=== PATIENT | female | born 1945 | race Caucasian/White ===

== ENCOUNTER 2017-01-27 22:17 | Inpatient (IN) | payer MEDICARE, OTHER ==
--- NOTE | ~2017-01-27 | CR72 ---
[facility] A Service of [facility] & [facility] RADIOLOGY TEXT RESULTS PATIENT: PEDRO LERMA LOCATION: A : 45 UNIT #: [id number] AGE: [address]: Benny Ibrahim MD SEX: F ORDER DR: [id number] [facility] [address] [place], [place] [address] [id number] I MR#: [id number] Acc #: [id number] NAME: PEDRO LERMA. : 1945 SEX: F STUDY DATE/TIME: 01/27/2017 22:19 UNIT: [facility] ROOM: [facility] STUDY DESCRIPTION: CR Chest Single View Portable Attending Physician: Benny Ibrahim M.D. Ordering Physician: Enrique Caraballo M.D. Primary Care Physician: Benny Ibrahim M.D. MEDICAL IMAGING REPORT This report is preliminary unless electronic signature is present EXAM AP portable chest 01/27/2017 22:19 HISTORY Chest pain and cough. Symptoms began 01/26/2017. Patient fell. Breast cancer. COMPARISON PA and lateral chest 11/21/2016. FINDINGS No acute airspace disease. Heart size is within normal limits. Upper lumbar curvature toward the left. Marginal osteophyte formation in the thoracic spine. No displaced rib fracture seen. Degenerative changes of both shoulders. No pleural effusion or pneumothorax. IMPRESSION No acute cardiopulmonary findings. Dictated by... Landy Rich M.D. THIS IS AN ELECTRONICALLY VERIFIED REPORT Landy Rich M.D. at 01/28/2017 10:03 PM LL/yahir TD: 01/28/2017 06:11 JOB #: [id number] MEDICAL IMAGING REPORT COPY
--- NOTE | ~2017-01-27 | CR63 ---
[facility] A Service of [facility] & [facility] RADIOLOGY TEXT RESULTS PATIENT: PEDRO LERMA LOCATION: A [address] : 45 UNIT #: [id number] AGE: [address]: Benny Ibrahim MD SEX: F ORDER DR: [id number] [facility] [address]. [place], [place] [address] [id number] I MR#: [id number] Acc #: [id number] NAME: PEDRO LERMA : 1945 SEX: F STUDY DATE/TIME: 01/30/2017 UNIT: A ROOM: [facility] STUDY DESCRIPTION: CR Chest 2 View Attending Physician: Benny Ibrahim M.D. Ordering Physician: Benny Ibrahim M.D. Primary Care Physician: Benny Ibrahim M.D. MEDICAL IMAGING REPORT This report is preliminary unless electronic signature is present EXAM Chest, 2 views, 01/30/2017, 0935 hours. HISTORY 71-year-old woman with 2-day history of shortness of air, cough, and congestion. Flu-like symptoms. COMPARISON STUDIES 01/27/2017 FINDINGS Upright PA and 2 lateral views demonstrate normal cardiac, mediastinal, and hilar contours. The lungs are well-expanded and clear. There is no effusion or pneumothorax. IMPRESSION Normal 2-view chest exam. Dictated by... Adelina Rice M.D. THIS IS AN ELECTRONICALLY VERIFIED REPORT Adelina Rice M.D. at 01/30/2017 6:58 PM Madi TD: 01/30/2017 15:26 JOB #: [id number] MEDICAL IMAGING REPORT COPY
--- NOTE | ~2017-01-27 | EKG ---
PATIENT: PEDRO LERMA UNIT #: [id number] Ventricular Rate: 52 BPM Atrial Rate: 52 BPM P-R Interval: 132 ms QRS Duration: 84 ms Q-T Interval: 496 ms QTC Calculation(Bezet): 461 ms P [place]: 69 degrees Calculated R [place]: -9 degrees Calculated T [place]: 33 degrees Diagnosis Line: Sinus bradycardia Diagnosis Line: Cannot rule out Inferior infarct , age Diagnosis Line: undetermined Diagnosis Line: ST and T wave abnormality, consider anterior Diagnosis Line: ischemia Diagnosis Line: Abnormal ECG Diagnosis Line: When compared with ECG of 15-AUG-2016 16:48, Diagnosis Line: No significant change was found Diagnosis Line: Confirmed by MARLI PATTERSON MD ([id number]) on Diagnosis Line: 01/30/2017 11:28:37 AM INTERPRETING MD: LEONARDO HOLDER
--- NOTE | ~2017-01-27 | US84 ---
[id number] [facility] [address] [place], [place] [address] [id number] I MR#: [id number] Acc #: [id number] NAME: PEDRO LERMA : 1945 SEX: F STUDY DATE/TIME: 01/30/2017 9:59 UNIT: C2A ROOM: 217 STUDY DESCRIPTION: US LE Veins Complete Herman Stdy Attending Physician: Benny Ibrahim M.D. Ordering Physician: Benny Ibrahim M.D. Primary Care Physician: Benny Ibrahim M.D. MEDICAL IMAGING REPORT This report is preliminary unless electronic signature is present EXAM Bilateral lower extremity venous duplex, 01/30/2017 HISTORY Bilateral lower extremity edema for 2 weeks and bilateral lower extremity pain for 1 year, thrombocytopenia. Evaluate for deep vein thrombosis. TECHNIQUE Venous ultrasound examination of both lower extremities was performed using grayscale, spectral Doppler and color flow Doppler imaging. FINDINGS The examination is negative. There is no evidence of deep venous thrombus from the groin to the lower calf bilaterally. Visualized greater saphenous veins are also patent. IMPRESSION Negative examination. No evidence of bilateral lower extremity deep venous thrombosis. Dictated by... Silvestre Alanis M.D. THIS IS AN ELECTRONICALLY VERIFIED REPORT Silvestre Alanis M.D. at 01/30/2017 5:03 PM Oni TD: 01/30/2017 14:44 JOB #: [id number] MEDICAL IMAGING REPORT COPY
--- NOTE | ~2017-01-27 | CT71 ---
[facility] A Service [facility] RADIOLOGY TEXT RESULTS PATIENT: PEDRO LERMA LOCATION: [facility] : 45 UNIT #: [id number] AGE: [address]: Benny Ibrahim MD SEX: F ORDER DR: [id number] [id number] [place], [place] [address] [id number] I MR#: [id number] Acc #: [id number] NAME: PEDRO LERMA : 1945 SEX: F STUDY DATE/TIME: 01/28/2017 16:27 UNIT: [facility] ROOM: [facility] STUDY DESCRIPTION: CT Head Wo Contrast Attending Physician: Benny Ibrahim M.D. Ordering Physician: Benny Ibrahim M.D. Primary Care Physician: Benny Ibrahim M.D. MEDICAL IMAGING REPORT This report is preliminary unless electronic signature is present EXAM Head CT no contrast, 01/28/[address] dated 07/12/2015 PROCEDURE Axial unenhanced head CT. This CT exam was performed with one or more of the following radiation dose reduction techniques: automatic exposure control, adjustment of mA and/or kV according to patient size, and iterative reconstruction. COMPARISON None. CLINICAL HISTORY New onset confusion, fell and struck head yesterday. FINDINGS There is no intracranial hemorrhage. There is no mass, hydrocephalus or extraaxial fluid collection. Brain parenchymal density is normal. There is some slight bilateral maxillary mucosal thickening as well as some sphenoid mucosal thickening. There is an old healed left ethmoid/lamina papyracea fracture but there is no acute bony abnormality. IMPRESSION Negative unenhanced head CT. No acute intracranial abnormality. The brain appears normal. Dictated by... [facility] A Service of [facility] RADIOLOGY TEXT RESULTS PATIENT: PEDRO LERMA LOCATION: [facility] : 45 UNIT #: [id number] AGE: [address]: Benny Ibrahim MD SEX: F ORDER DR: Zeke Talley M.D. THIS IS AN ELECTRONICALLY VERIFIED REPORT Zeke Talley M.D. at 01/31/2017 3:49 PM TEV/ljd TD: 01/29/2017 03:24 JOB #: [id number] MEDICAL IMAGING REPORT COPY
--- NOTE | ~2017-01-27 | NM69 ---
[facility] A Service of [facility] RADIOLOGY TEXT RESULTS PATIENT: PEDRO LERMA LOCATION: [facility] : 45 UNIT #: [id number] AGE: [address]: Benny Ibrahim MD SEX: F ORDER DR: [id number] [facility] [address]. [place], [place] [address] [id number] I MR#: [id number] Acc #: [id number] NAME: PEDRO LERMA : 1945 SEX: F STUDY DATE/TIME: 01/30/2017 11:06 UNIT: [facility] ROOM: [facility] STUDY DESCRIPTION: NM Pulm Vent and Perf Attending Physician: Benny Ibrahim M.D. Ordering Physician: Benny Ibrahim M.D. Primary Care Physician: Benny Ibrahim M.D. MEDICAL IMAGING REPORT This report is preliminary unless electronic signature is present EXAM Ventilation/perfusion study of the lungs. HISTORY Shortness of air, fatigue, tightness in chest and swelling in legs of recent onset. TECHNIQUE The patient was given 30.5 mCi of technetium 99m MDP in aerosol form for the ventilation study and 5.56 mCi of technetium-99m MAA for the perfusion study. FINDINGS There are areas of slightly decreased perfusion and ventilation in each lung but they are matched and they likely represent vascular structures. Chest x-ray today was clear. IMPRESSION Study indicates a low probably for pulmonary embolus. Dictated by... Zachary Banegas M.D. THIS IS AN ELECTRONICALLY VERIFIED REPORT Zachary Banegas M.D. at 01/30/2017 4:39 PM PIETRO/craig TD: 01/30/2017 16:24 JOB #: [id number] [facility] A Service [facility] RADIOLOGY TEXT RESULTS PATIENT: PEDRO LERMA LOCATION: [facility] : 45 UNIT #: [id number] AGE: [address]: Benny Ibrahim MD SEX: F ORDER DR: MEDICAL IMAGING REPORT COPY
--- NOTE | ~2017-01-27 | CR126 ---
[facility] A Service of [facility] & [facility] RADIOLOGY TEXT RESULTS PATIENT: PEDRO LERMA LOCATION: C2A : 45 UNIT #: [id number] AGE: [address]: Benny Ibrahim MD SEX: F ORDER DR: [id number] [facility] [address] [place], [place] [address] [id number] I MR#: [id number] Acc #: [id number] NAME: PEDRO LERMA. : 1945 SEX: F STUDY DATE/TIME: 01/27/2017 22:23 UNIT: [facility] ROOM: [facility] STUDY DESCRIPTION: CR Foot Complete Min 3 View Lt Attending Physician: Benny Ibrahim M.D. Ordering Physician: Ed Doctor [id number] [facility] Primary Care Physician: Benny Ibrahim M.D. MEDICAL IMAGING REPORT This report is preliminary unless electronic signature is present EXAM Left foot 3 views 01/27/2017 HISTORY Left foot pain after falling on 01/26/2017. COMPARISON Left foot radiographs 02/17/2015. FINDINGS Limited evaluation of the toes due to second through fourth digit extension at the MCP joints and flexion of the PIP and DIP joints. Allowing for this, no acute fracture or dislocation is seen. There is marginal erosive change at the medial margin of the distal first metatarsal, similar to the prior exam, nonspecific but can be seen in gout. No suspicious osteolytic or osteoblastic abnormalities are identified. No unexpected retained radiopaque foreign body is appreciated within the soft tissues. Tiny posterior calcaneal spurs. IMPRESSION 1. Limited evaluation of the digits due to extension at the metatarsal phalangeal joints and flexion at the interphalangeal joints. No acute fracture or dislocation is seen. 2. Marginal erosion at the distal first metatarsal near the MTP joint, unchanged from prior exam, can be seen in cases of gout. Dictated by... Landy Rich M.D. THIS IS AN ELECTRONICALLY VERIFIED REPORT Landy Rich M.D. at 01/28/2017 10:03 PM [facility]/yahir [facility] A Service of [facility] & [facility] RADIOLOGY TEXT RESULTS PATIENT: PEDRO LERMA LOCATION: [facility] 217-01 : 45 UNIT #: [id number] AGE: [address]: Benny Ibrahim MD SEX: F ORDER DR: TD: 01/28/2017 06:21 JOB #: [id number] MEDICAL IMAGING REPORT COPY
--- NOTE | ~2017-01-27 | CR150 ---
[facility] A Service of [facility] & [facility] RADIOLOGY TEXT RESULTS PATIENT: PEDRO LERMA LOCATION: C2A : 45 UNIT #: [id number] AGE: [address]: Benny Ibrahim MD SEX: F ORDER DR: [id number] [facility] [address]. [place], [place] [address] [id number] I MR#: [id number] Acc #: [id number] NAME: PEDRO LERMA. : 1945 SEX: F STUDY DATE/TIME: 01/27/2017 22:31 UNIT: [facility] ROOM: [facility] STUDY DESCRIPTION: CR Hip Min 2 Views Lt Attending Physician: Benny Ibrahim M.D. Ordering Physician: Enrique Caarballo M.D. Primary Care Physician: Benny Ibrahim M.D. MEDICAL IMAGING REPORT This report is preliminary unless electronic signature is present EXAM AP pelvis with frog view left hip 01/27/2017 HISTORY 71-year-old female with left hip pain after falling on 01/26/2017. COMPARISON None. FINDINGS Patient is slightly rotated toward the right. No acute pelvic or hip fracture or hip dislocation is seen. No significant left hip osteoarthritic type changes are identified. Facet arthropathy is thought to be present on the left in the lower lumbar spine. IMPRESSION 1. No acute abnormality of the pelvis or left hip. 2. Lower lumbar facet arthropathy on the left. Dictated by... Landy Rich M.D. THIS IS AN ELECTRONICALLY VERIFIED REPORT Landy Rich M.D. at 01/28/2017 10:03 PM ANGELES/yahir TD: 01/28/2017 06:13 JOB #: [id number] MEDICAL IMAGING REPORT COPY
--- NOTE | ~2017-01-27 | CT4 ---
[facility] A Service of [facility] & [facility] RADIOLOGY TEXT RESULTS PATIENT: PEDRO LERMA LOCATION: C2A : 45 UNIT #: [id number] AGE: [address]: Benny Ibrahim MD SEX: F ORDER DR: [id number] [facility] [address] [place], [place] [address] [id number] I MR#: [id number] Acc #: [id number] NAME: PEDRO LERMA. : 1945 SEX: F STUDY DATE/TIME: 01/27/2017 22:45 UNIT: C2A ROOM: [facility] STUDY DESCRIPTION: CT Abd and Pelv Wo Cont Attending Physician: Benny Ibrahim M.D. Ordering Physician: Enrique Caraballo M.D. Primary Care Physician: Benny Ibrahim M.D. MEDICAL IMAGING REPORT This report is preliminary unless electronic signature is present EXAM CT abdomen and pelvis without contrast. Date 01/27/2017 22:45 HISTORY 71-year-old female who fell yesterday. Back pain. Abdominal pain. Diarrhea. History of breast cancer. COMPARISON CT abdomen and pelvis without contrast 12/25/2016. PROCEDURE 3 mm noncontrast axial images through the abdomen and pelvis. Sagittal and coronal reformatted images were obtained. Enteric contrast was not administered. This CT exam was performed with one or more of the following radiation dose reduction techniques: automatic exposure control, adjustment of mA and/or kV according to patient size, and iterative reconstruction. FINDINGS Abdomen: Lung bases are free of consolidation. Coronary artery calcifications are present. The noncontrast appearance of the liver, spleen, pancreas, right adrenal and bilateral kidneys is within normal limits. 2.8 x 1.4 cm left adrenal nodular thickening (Hounsfield units 8.0), unchanged, in keeping with a benign adenoma. Cholelithiasis without evidence of cholecystitis. Tiny umbilical hernia contains only fat. Small esophageal hiatal hernia. Appendix not visualized on today's examination, but no pericecal inflammation is seen. Limited evaluation of bowel due to lack of enteric contrast but no focal bowel inflammatory change is evident. Pelvis: Sigmoid diverticular changes are present without evidence of acute diverticulitis. Urinary bladder and rectum are normal. Presumed STS. [facility] A Service of [facility] RADIOLOGY TEXT RESULTS PATIENT: PEDRO LERMA LOCATION: A 217-01 : 45 UNIT #: [id number] AGE: [address]: Benny Ibrahim MD SEX: F ORDER DR: hysterectomy. Review of bone windows demonstrates no acute lumbar spine fracture, pelvic fracture, hip fracture or hip dislocation. Degenerative changes lumbar spine, most prominent with facet arthropathy bilaterally L4-5 and L5-S1. IMPRESSION 1. No acute findings in the abdomen and pelvis. 2. Bilateral L4-5, L5-S1 facet arthropathy. 3. Uncomplicated cholelithiasis. 4. Uncomplicated sigmoid diverticulosis. 5. Left adrenal adenoma. 6. Coronary calcifications. 7. Presumed hysterectomy. Dictated by... Landy Rich M.D. THIS IS AN ELECTRONICALLY VERIFIED REPORT Landy Rich M.D. at 01/28/2017 10:03 PM Alejandro TD: 01/28/2017 06:20 JOB #: [id number] MEDICAL IMAGING REPORT COPY
--- NOTE | ~2017-01-27 | HP ---
Unit #: [id number] #: [id number] Patient: PEDRO LERMA [id number] [address] [place], [place] [address] [id number] I MR#: [id number] NAME: PEDRO LERMA. ROOM: 217 Age: 71 Sex: F Admission Date: 01/28/2017 : 1945 Attending Physician: Benny Ibrahim M.D. Primary Care Physician: Benny Ibrahim M.D. HISTORY AND PHYSICAL HISTORY OF PRESENT ILLNESS 71-year-old white female, history of hypertension, hyperlipidemia, coronary artery disease, osteoporosis, chronic low back pain, breast cancer, status post bilateral mastectomies, chronic kidney disease stage 3, recent bout of diverticulitis, refused to take Flagyl for whatever reason. She then was in the shower on the and fell hurting her left hip. Was unable to ambulate, was brought to the emergency room, found to have normal hip x-rays. She had some arthritis in her spine which is obviously chronic. She was found to have acute influenzae A as well as a urinary tract infection and immobilization syndrome and was admitted for treatment for same. The patient has had recent upper respiratory symptoms but she has had no abdominal pain, nausea, vomiting or diarrhea. Was unaware that she was febrile. ALLERGIES She has stated allergies to penicillin, Talwin, hydrochlorothiazide and ibuprofen. MEDICATIONS Her medications prior to admission: 1. Lopressor 50 mg b.i.d. 2. Lipitor 10 mg daily. 3. Flexeril 5 mg b.i.d. 4. Isosorbide dinitrate 20 mg daily. 5. Plavix 75 mg daily. 6. Zoloft 100 daily. 7. Vitamin D2 50,000 units twice weekly. 8. Nitrostat sublingual p.r.n. 9. Lortab 5/325, one q.4 hours p.r.n. for pain. 10. Enteric coated aspirin 81 mg daily. 11. Prilosec 20 mg daily. 12. Colace 100 mg daily. 13. Iron 65 mg b.i.d. 14. Tamoxifen 20 mg daily. 15. Prolia 60 mg IM q.6 months. 16. Neurontin 300 mg p.o. daily. PAST MEDICAL HISTORY She has a history of: 1. Hypertension. 2. Hyperlipidemia. 3. Coronary artery disease. 4. Osteoporosis. 5. Chronic low back pain. Unit #: [id number] #: [id number] Patient: PEDRO LERMA 6. Breast cancer. 7. Chronic kidney disease stage 3. 8. Parkinson's dementia. 9. History of anemia. 10. Major depressive disorder. 11. GE reflux disease. PAST SURGICAL HISTORY 1. Bilateral mastectomies. 2. Status post hysterectomy. 3. Status post appendectomy. 4. Cardiac stents. 5. Angioplasty. 6. Right rotator cuff repair. 7. Rhinoplasty. 8. Septoplasty. SOCIAL HISTORY Nonsmoker, nondrinker. No street drugs. FAMILY HISTORY Noncontributory. PHYSICAL EXAMINATION GENERAL: She is awake, alert, oriented x3, in no acute distress. VITAL SIGNS: T-max overnight is 100.0, pulse 79, respirations 21, blood pressure 157/76. O2 sat 96% on room air. HEENT: Unremarkable. NECK: Supple without JVD, bruits, adenopathy or thyromegaly. CHEST: Clear to auscultation. HEART: Regular rate and rhythm without any murmurs, rubs or gallops. ABDOMEN: Soft, nondistended, nontender with positive bowel sounds and no hepatosplenomegaly. EXTREMITIES: No clubbing, cyanosis or edema. /RECTAL: Deferred. NEUROLOGICAL: Grossly intact. DIAGNOSTIC STUDIES LABORATORY: CBC normal except for a platelet count of 116,000. Influenzae A positive. Influenzae B negative. CMP normal except for random blood sugar of 115, BUN of 24, GFR of 52. Urinalysis shows 2+ leukocytes, positive for nitrates, 2+ blood, 5-10 RBCs, 100-200 WBCs, 4+ bacteria. IMAGING: Chest x-ray - no active disease. Two views of the left hip - no fracture. CT scan of the abdomen and pelvis - no active disease. Bilateral L4-5 and L5-S1 facet arthropathy. Gallstones without evidence of acute cholecystitis. Sigmoid diverticulosis. Left adrenal adenoma. Coronary calcifications. IMPRESSION 1. Left hip confusion. Unit #: [id number] #: [id number] Patient: PEDRO LERMA 2. Immobilization syndrome. 3. Acute influenzae A. 4. Urinary tract infection. 5. Chronic kidney disease, stage 3. 6. Thrombocytopenia. 7. Coronary artery disease. 8. Chronic low back pain. 9. History of breast cancer. 10. Hypertension. 11. Hyperlipidemia. 12. GE reflux disease. 13. Gallstones. 14. Major depressive disorder. 15. Osteoporosis. 16. Parkinson's. 17. Mild dementia. 18. History of anemia. 19. Status post hysterectomy. 20. Status post bilateral mastectomies. PLAN Tamiflu, IV antibiotics, urine culture. OT/PT consults. DVT prophylaxis. Follow renal function and platelets. Further evaluation pending results of above. Dictated by Benny Ibrahim M.D. TITI/daisy TD: 01/28/2017 08:57 JOB #: [id number] HISTORY AND PHYSICAL X Benny Ibrahim MD X HISTORY AND PHYSICAL
--- NOTE | ~2017-01-27 | DS ---
Unit #: [id number] #: [id number] Patient: PEDRO LERMA [id number] [address] [address] [id number] MR#: [id number] NAME: PEDRO LERMA. ROOM: 217 Age: 71 Sex: F Admission Date: 01/28/2017 : 1945 Discharge Date: 02/01/2017 Attending Physician: Benny Ibrahim M.D. Primary Care Physician: Benny Ibrahim M.D. DISCHARGE SUMMARY PRINCIPAL DISCHARGE DIAGNOSES 1. Escherichia coli urinary tract infection. 2. Acute influenza A. 3. Immobilization syndrome. 4. Parkinson syndrome. 5. Chronic kidney disease stage 3. 6. Thrombocytopenia. 7. Coronary artery disease. 8. Chronic low back pain. 9. History of breast cancer. 10. Hypertension. 11. Hyperlipidemia. 12. Gastroesophageal reflux disease. 13. Gallstones. 14. Major depressive disorder. 15. Osteoporosis. 16. History of anemia. 17. Status post hysterectomy. 18. Status post bilateral mastectomies. PROCEDURES None. CONSULTANTS None. REASON FOR HOSPITALIZATION The patient is a 71-year-old white female with a history of hypertension, hyperlipidemia, coronary artery disease, osteoporosis, chronic low back pain, breast cancer, bilateral mastectomies, chronic kidney disease stage 3, was taking a bath and fell on the 12th. She was having trouble ambulating because of hip pain, came to the emergency room, found to have normal x-ray of her hip with some arthritis particularly in her spine which was already known, found to have acute influenza A as well as a urinary tract infection and was admitted for treatment for same. On admission the patient had a temperature of 100.0 degrees. Her vital signs were stable. Room air O2 sat was 96%. CBC was normal except for a platelet count of 116,000. Influenza A was positive, B was negative. CMP was normal except for a random blood sugar of 115, a BUN of 24 and a GFR of 52. Urinalysis showed 2+ leukocytes, positive for nitrites, 2+ blood, 5 to 10 RBCs, 100 to 200 WBCs, 4+ bacteria. Chest x-ray no active disease. CT scan of the abdomen and pelvis no active disease. Gallstones noted without evidence of acute cholecystitis, sigmoid diverticulosis, Unit #: [id number] #: [id number] Patient: PEDRO LERMA left adrenal adenoma, coronary calcifications and the patient was admitted. HOSPITAL COURSE The patient was admitted, started on Tamiflu, IV antibiotics. Urine culture was sent. OT and PT consults were obtained. DVT prophylaxis was instituted. Labs were followed. CT scan of the head was performed while here because of some confusion but was within normal limits. Her BMP yesterday was normal except for a BUN of 28 and a GFR of 58. Her CBC yesterday was normal except for a platelet count of 131. Bilateral lower extremity venous Doppler was performed because of shortness of air looking for DVT and it was negative. Ventilation perfusion lung scan was low probability for PE. Cardiac enzymes and BMP were normal. EKG showed a sinus bradycardia, possible old inferior NM, ST/T abnormalities that were nonspecific. Urine culture grew greater than 10 to 15 E. coli sensitive to all antibiotics on the panel. DISPOSITION The patient currently has a bed a [facility] for rehab. She has agreed to go. DIET She is on a healthy heart diet. DISCHARGE MEDICATIONS Her current meds: 1. Tylenol 650 q.6 h. p.r.n. 2. Lovenox 40 mg subcu daily. 3. Zoloft 100 mg p.o. daily. 4. Zofran 4 mg p.o. q.4 h. p.r.n. for nausea or vomiting. 5. Tamiflu 75 mg p.o. q.12 h. which will be discontinued after this evening's dose. 6. Metoprolol tartrate 50 mg p.o. b.i.d. 7. Colace 100 mg p.o. daily. 8. Lipitor 10 mg p.o. q.h.s. 9. Ferrous gluconate 324 mg p.o. b.i.d. 10. Pepcid 20 mg p.o. daily. 11. Sinemet 25/100 one p.o. q.8 h. 12. Enteric-coated aspirin 81 mg p.o. daily. 13. [place] 5/325 one q.i.d. p.r.n. for pain. 14. Plavix 75 mg p.o. daily. 15. Isosorbide dinitrate 20 mg p.o. daily. 16. Nitrostat sublingual 0.4 mg q.5 minutes p.r.n. for chest pain. 17. Levaquin 500 mg p.o. daily for an additional six days. Dictated by... Mj Shepherd/raegan TD: 02/01/2017 15:53 JOB #: [id number] Unit #: [id number] #: [id number] Patient: PEDRO LERMA DISCHARGE SUMMARY X Benny Ibrahim MD X DISCHARGE SUMMARY
[~2017-01-27 22:17] MED LIST: ALBUTEROL17 GM INH; ASPIRIN EC81 M1 PO; ASPIRIN325 M1 PO; ASPIRIN81 M1 PO; ASPIRIN81 MG PO; ASPIRINEC PO; ATORVASTATIN CA10 MG PO; BACTRIM DS TABL1 TA1 PO; BAYER CHEWABLE81 MG PO; CARBIDOPA-LEVO1 EACH PO; CIPRO PO; CLOPIDOGREL BIS75 MG PO; CLOPIDOGREL75 MG PO; CYCLOBENZAPRINE5 MG PO; DOXYCYCLINE PO; ECOTRIN325 MG PO; GABAPENTIN300 MG PO; HYDROCODON-ACE1 EAC7 PO; HYDROCODON-ACE1 EACH PO; IMMODIUM1 MG/5 ML PO; IRON PO; IRON1 TA1 PO; IRON1 TAB PO; ISMO20 M2 PO; ISORDIL PO; ISORDIL40 MG PO; ISOSORBIDE DN PO; ISOSORBIDE MONO20 MG PO; LEVAQUIN PO; LIPITOR PO; LISINOPRIL10 MG PO; LISINOPRIL20 MG PO; LOPID600 MG PO; LOPRESSOR PO; LORATADINE PO; LORTAB 5-325 M1 EACH PO; NITROGYLCERIN SUBLINGUAL; NITROSTAT0.4 MG SL; PHENERGAN25 MG; PLAVIX PO; PRAVACHOL PO; PRILOSEC PO; PRILOSEC20 MG; PRILOSEC20 MG PO; PRILOSEC40 MG PO; PROLIA60 MG/1 ML SQ; PYRIDIUM PO; STOOL SOFTENER100 M1 PO; STOOL SOFTENER50 MG PO; TAMOXIFEN CITRA20 MG PO; TAMOXIFEN PO; TOPROL XL 50 MG50 MG PO; TOPROL XL50 MG PO; VICODIN 5/500 T1 TAB PO; VITAMIN C500 M1 PO; VITAMIN D250000 UNIT PO; VITAMIN D50000 UNIT IU; ZESTORETIC 20/11 TAB PO; ZOFRAN ODT4 MG PO; ZOFRAN8 MG PO; ZOLOFT PO; ZOLOFT100 MG PO; [UNRECOGNIZED DRUG - CODE] IM
[2017-01-28 00:26] LABS: BASOPHIL% 0.6 % (0-2.5); EOSINOPHIL# 0.2 X10e3 (0-0.7); EOSINOPHIL% 2.8 % (0.0-7.0); HEMATOCRIT 38.9 % (35.0-45.0); HEMOGLOBIN 13.1 gm/dL (12.0-16.0); LYMPHOCYTE# 0.7 X10e3 (1.0-3.5); MEAN CELL VOLUME 90.9 FL (83-96); MEAN CORPUSCULAR HEMOGLOBIN 30.6 PG (28-34); MEAN CORPUSCULAR HGB CONC 33.7 g/dL (30-36); MONOCYTE# 0.6 X10e3 (0-1.0); MONOCYTE% 8.3 % (3.0-12.0); NEUTROPHIL% 79.3 % (40-75); PLATELET COUNT 116 X10e3 (140-420); RED BLOOD COUNT 4.28 X10e (3.90-5.30); RED CELL DISTRIBUTION WIDTH 13.3 % (11.0-15.5); WHITE BLOOD COUNT 7.6 X10e3 (4.0-10.5)
[2017-01-28 00:27] LABS: DIFF IND NO
[2017-01-28 00:33] LABS: INFLUENZA A POS (NEG); INFLUENZA B NEG (NEG)
[2017-01-28 00:49] LABS: ALBUMIN SERUM 3.8 g/dL (3.5-5.0); BILIRUBIN, DIRECT 0.2 mg/dL (0.0-0.2); BILIRUBIN,INDIRECT 0.1 mg/dL (0.0-0.9); BILIRUBIN,TOTAL 0.3 mg/dL (0.2-2.0); BUN/CREATININE RATIO 21.81; CALCIUM SERUM 8.6 mg/dL (8.4-10.2); CREATININE SERUM 1.1 mg/dL (0.6-1.4); POTASSIUM 3.9 mmol/L (3.5-5.1); PROTEIN TOTAL SERUM 6.6 g/dL (6.0-8.3)
[2017-01-28 01:45] LABS: URINE SOURCE CLEAN CATCH
[2017-01-28 01:50] LABS: URINE APPEARANCE CLOUDY; URINE BILIRUBIN NEG (NEG); URINE BLOOD 2+ (NEG); URINE COLOR YELLOW; URINE GLUCOSE NEG (NEG); URINE KETONE NEG (NEG); URINE LEUKOCYTE ESTERASE 2+ (NEG); URINE NITRATE POS (NEG); URINE PH 5.5 (5-8); URINE PROTEIN TRACE (NEG); URINE SPECIFIC GRAVITY 1.023 (1.003-1.035)
[2017-01-28 01:53] LABS: CULTURE INDICATED? YES; URINE BACTERIA AUWI 4+ (NEGATIVE); URINE SQUAMOUS EPITHELIAL CELL NONE SEEN /[HPF]; UWBCS1 AUWI 100-200 (0-5)
[2017-01-28] MEDS ORDERED: METOPROLOL TAR100 MG PO (03:21)
[2017-01-28] MEDS ORDERED: ATORVASTATIN CA10 MG PO (03:21)
[2017-01-28] MEDS ORDERED: ISOSORBIDE DINI10 MG PO (03:22)
[2017-01-28] MEDS ORDERED: CYCLOBENZAPRINE5 MG PO (03:22)
[2017-01-28] MEDS ORDERED: CLOPIDOGREL75 MG PO (03:23)
[2017-01-28] MEDS ORDERED: ZOLOFT100 MG PO (03:23)
[2017-01-28] MEDS ORDERED: VITAMIN D250000 UNIT PO (03:24)
[2017-01-28] MEDS ORDERED: NITROSTAT0.4 MG SL (03:24)
[2017-01-28] MEDS ORDERED: LORTAB 5-325 M1 EACH PO (03:25)
[2017-01-28] MEDS ORDERED: LOW DOSE ASPIRI81 M2 PO (03:25)
[2017-01-28] MEDS ORDERED: DOCUSATE SODIU100 MG PO (03:26)
[2017-01-28] MEDS ORDERED: PEPCID AC20 M2 PO (03:26)
[2017-01-28] MEDS ORDERED: TAMOXIFEN CITRA20 MG PO (03:27)
[2017-01-28] MEDS ORDERED: IRON45 MG PO (03:27)
[2017-01-28] MEDS ORDERED: PROLIA60 MG/1 ML IM (03:28)
[2017-01-28] MEDS ORDERED: NEURONTIN300 MG PO (03:28)
[2017-01-29 09:11] LABS: HEMATOCRIT 37.8 % (35.0-45.0); HEMOGLOBIN 12.6 gm/dL (12.0-16.0); MEAN CELL VOLUME 90.2 FL (83-96); MEAN CORPUSCULAR HEMOGLOBIN 30.1 PG (28-34); MEAN CORPUSCULAR HGB CONC 33.3 g/dL (30-36); MEAN PLATELET VOLUME 7.7 FL (6.5-11.5); RED BLOOD COUNT 4.19 X10e (3.90-5.30); RED CELL DISTRIBUTION WIDTH 13.6 % (11.0-15.5); WHITE BLOOD COUNT 5.3 X10e3 (4.0-10.5)
[2017-01-29 09:36] LABS: BUN/CREATININE RATIO 22.72; CALCIUM SERUM 8.4 mg/dL (8.4-10.2); CREATININE SERUM 1.1 mg/dL (0.6-1.4); POTASSIUM 3.7 mmol/L (3.5-5.1)
[2017-01-29] MEDS ORDERED: CARBIDOPA-LEVO1 TAB PO (10:51)
[2017-01-30 06:33] LABS: HEMATOCRIT 37.9 % (35.0-45.0); HEMOGLOBIN 12.6 gm/dL (12.0-16.0); MEAN CELL VOLUME 89.9 FL (83-96); MEAN CORPUSCULAR HEMOGLOBIN 29.9 PG (28-34); MEAN CORPUSCULAR HGB CONC 33.3 g/dL (30-36); MEAN PLATELET VOLUME 7.6 FL (6.5-11.5); RED BLOOD COUNT 4.22 X10e (3.90-5.30); RED CELL DISTRIBUTION WIDTH 13.5 % (11.0-15.5)
[2017-01-30 06:58] LABS: BUN/CREATININE RATIO 28.18; CALCIUM SERUM 8.5 mg/dL (8.4-10.2); CREATININE SERUM 1.1 mg/dL (0.6-1.4); POTASSIUM 3.6 mmol/L (3.5-5.1)
[2017-01-31 07:04] LABS: MEAN PLATELET VOLUME 7.8 FL (6.5-11.5); WHITE BLOOD COUNT 5.6 X10e3 (4.0-10.5)
[2017-01-31 07:07] LABS: HEMATOCRIT 40.1 % (35.0-45.0); HEMOGLOBIN 13.3 gm/dL (12.0-16.0); MEAN CORPUSCULAR HEMOGLOBIN 29.7 PG (28-34); RED BLOOD COUNT 4.46 X10e (3.90-5.30); RED CELL DISTRIBUTION WIDTH 13.7 % (11.0-15.5)
[2017-01-31 09:27] LABS: CALCIUM SERUM 8.6 mg/dL (8.4-10.2); GLOM FILT RATE Estimated 58.1 mL/min (>60); POTASSIUM 3.9 mmol/L (3.5-5.1)
== END 2017-02-01 13:58 | DRG 690 ==
LOC: CED 22:17 → CEDOF 01-28 02:00 → C2A 01-28 05:30
PROVIDERS: Emergency Medicine; Internal Medicine
DX: N39.0 Urinary tract infection, site not specified (principal); I42.9 Cardiomyopathy, unspecified; N18.3 Chronic kidney disease, stage 3 (moderate); D69.6 Thrombocytopenia, unspecified; F03.90 Unspecified dementia, unspecified severity, without behavioral disturbance, psychotic disturbance, mood disturbance, and anxiety; B96.20 Unspecified Escherichia coli [E. coli] as the cause of diseases classified elsewhere; J10.89 Influenza due to other identified influenza virus with other manifestations; M62.3 Immobility syndrome (paraplegic); G20 Parkinson's disease; I12.9 Hypertensive chronic kidney disease with stage 1 through stage 4 chronic kidney disease, or unspecified chronic kidney disease; I25.10 Atherosclerotic heart disease of native coronary artery without angina pectoris; Z95.5 Presence of coronary angioplasty implant and graft; G89.29 Other chronic pain; M54.5 Low back pain; E78.5 Hyperlipidemia, unspecified; K21.9 Gastro-esophageal reflux disease without esophagitis; K80.80 Other cholelithiasis without obstruction; F32.9 Major depressive disorder, single episode, unspecified; M81.0 Age-related osteoporosis without current pathological fracture; S70.02XA Contusion of left hip, initial encounter; W18.2XXA Fall in (into) shower or empty bathtub, initial encounter; Y93.E1 Activity, personal bathing and showering; Y92.002 Bathroom of unspecified non-institutional (private) residence as the place of occurrence of the external cause; R41.82 Altered mental status, unspecified; Z90.710 Acquired absence of both cervix and uterus; Z90.13 Acquired absence of bilateral breasts and nipples; Z88.0 Allergy status to penicillin; Z88.8 Allergy status to other drugs, medicaments and biological substances; Z85.3 Personal history of malignant neoplasm of breast
CPT/HCPCS: 36415; 51701; 70450; 71010; 71020; 73502; 73630; 74176; 78582; 80048; 80076; 81003; 82947; 83690; 83880; 84484; 85025; 85027; 87086; 87088; 87186; 87804; 93005; 93970; 97162; 97167; 97530; 97535; 99285; A9540; A9567; G8978-GP; G8979-GP; G8987-GO; G8988-GO; J0696; J1650; J1956; J2405

== ENCOUNTER 2017-04-09 18:09 | Emergency (ER) | payer MEDICARE, OTHER ==
[~2017-04-09 18:09] MED LIST changes: +CARBIDOPA-LEVO1 TAB PO; +DOCUSATE SODIU100 MG PO; +IRON45 MG PO; +ISOSORBIDE DINI10 MG PO; +LOW DOSE ASPIRI81 M2 PO; +METOPROLOL TAR100 MG PO; +NEURONTIN300 MG PO; +PEPCID AC20 M2 PO; +PROLIA60 MG/1 ML IM
[2017-04-09 18:32] LABS: URINE SOURCE CLEAN CATCH
[2017-04-09 18:36] LABS: URINE APPEARANCE CLOUDY; URINE BILIRUBIN NEG (NEG); URINE BLOOD NEG (NEG); URINE COLOR YELLOW; URINE GLUCOSE NEG (NEG); URINE KETONE TRACE (NEG); URINE LEUKOCYTE ESTERASE 3+ (NEG); URINE NITRATE POS (NEG); URINE PH 5.5 (5-8); URINE PROTEIN NEG (NEG)
[2017-04-09 18:38] LABS: CULTURE INDICATED? YES; U HYALINE CASTS AUWI 0-2 /[LPF]; URINE BACTERIA AUWI 4+ (NEGATIVE); URINE SQUAMOUS EPITHELIAL CELL OCC /[HPF]; UWBCS1 AUWI INNUM (0-5)
== END 2017-04-09 19:02 | disposition home or self-care (01) ==
LOC: CFTX 18:09 → CED 18:09 → CFTX 18:54
PROVIDERS: Physician Assistant Medical
DX: N30.90 Cystitis, unspecified without hematuria (principal); I10 Essential (primary) hypertension; I25.2 Old myocardial infarction; G20 Parkinson's disease; D64.9 Anemia, unspecified; K21.9 Gastro-esophageal reflux disease without esophagitis; Z90.49 Acquired absence of other specified parts of digestive tract; Z90.710 Acquired absence of both cervix and uterus; Z90.13 Acquired absence of bilateral breasts and nipples; Z98.890 Other specified postprocedural states; Z87.440 Personal history of urinary (tract) infections; Z88.0 Allergy status to penicillin; Z88.8 Allergy status to other drugs, medicaments and biological substances; Z79.899 Other long term (current) drug therapy; Z79.82 Long term (current) use of aspirin
CPT/HCPCS: 81003; 87086; 87088; 87186; 99283

== ENCOUNTER → 2017-06-21 | Outpatient (CLI) | payer MEDICARE, OTHER ==
--- NOTE | ~2017-06-21 | MR112 ---
[facility] A Service of [facility] RADIOLOGY TEXT RESULTS PATIENT: PEDRO LERMA LOCATION: [facility] : 45 UNIT #: [id number] AGE: [address]: Patricio South II, MD SEX: F ORDER DR: [id number] [facility] [address] [place], [place] [address] [id number] O MR#: [id number] Acc #: [id number] NAME: PEDRO LERMA : 1945 SEX: F STUDY DATE/TIME: 06/21/2017 20:24 UNIT: [facility] ROOM: STUDY DESCRIPTION: MR Lumbar WWo Contrast Attending Physician: Patricio South II., M.D. Referring Physician: Patricio South II., M.D. Ordering Physician: Patricio South II., M.D. Primary Care Physician: Benny Ibrahim M.D. MRI CENTER REPORT This report is preliminary unless electronic signature is present. EXAM MRI of the lumbar spine with and without contrast, 06/21/2017 COMPARISON MRI of the lumbar spine without contrast, 06/09/2014 HISTORY Low back pain for 3-4 years. Left foot does not work normally for the last 8 months. There is numbness with tingling in it. History of breast cancer. FINDINGS Multi-sequence, multiplanar imaging of the lumbar spine was obtained with and without contrast. GFR measured 49. 20 mL of MultiHance was administered intravenously. Vertebral body heights and alignment are preserved. Degenerative disc disease is at multiple levels. Conus terminates at T12-L1. Signal of conus and cauda equina are within normal limits. Pre and paravertebral soft tissues do not demonstrate any significant abnormality. L1-2: Concentric disc bulge with superimposed small left subarticular to left foraminal broad-based protrusion. No significant canal stenosis or neural foraminal narrowing. Stable. L2-3: Disc osteophyte complex with moderate to severe left facet hypertrophic change. There is probably superimposed right to left subarticular moderate broad-based protrusion which is more prominent in the center. Moderate to severe bilateral ligamentum flavum thickening is noted with severe canal stenosis, mild right and moderate left lateral recess stenosis. Mild bilateral neural foraminal narrowing is seen, worse in the left. [facility] A Service of [facility] RADIOLOGY TEXT RESULTS PATIENT: PEDRO LERMA [facility] UNIT #: [id number] AGE: [address]: Patricio South II, MD SEX: F ORDER DR: L3-4: Moderate disc bulge with mild bilateral facet changes. There is a right central to left central superimposed broad-based protrusion which appears to extend toward the left subarticular region. Severe canal stenosis is seen with mild inferior bilateral neural foraminal narrowing. Stable. L4-5: Concentric disc bulge with severe bilateral facet hypertrophic changes, severe canal stenosis, mild to moderate bilateral lateral recess stenosis and mild bilateral neural foraminal narrowing. Stable. L5-S1: Disc osteophyte complex which is asymmetrically prominent in the center. Moderate to severe bilateral facet hypertrophic changes are noted with increased T2 signal lesions posterior to bilateral laminae and facet joints. They measure 0.9 x 1.1 cm in the right and 0.9 x 1.3 cm in the left suggestive of synovial cysts or inflammatory tissue. Mild to moderate bilateral lateral recess stenosis and mild bilateral neural foraminal narrowing particularly in the left are noted. The new lesions in the paraspinal muscles, posterior to the laminae and facet joints, the remaining findings are stable. IMPRESSION 1. No enhancing bony lesions to suggest metastasis. 2. Degenerative changes are noted at multiple levels of the lumbar spine, worse at L2-3 to L4-5 levels with canal stenosis, bilateral lateral recess stenosis and neural foraminal narrowing. Relatively stable. 3. Interval new increased T2 signal lesions are noted posterior to the laminae and facet joints at L5-S1 level, and the other paraspinal muscles. It is probably synovial inflammatory tissue or cyst based on statistics. Benign appearing. STAT * RESULT Dictated by... Juanpablo Newsome M.D. THIS IS AN ELECTRONICALLY VERIFIED REPORT Juanpablo Newsome M.D. at 06/26/2017 6:16 AM SURI/frances TD: 06/25/2017 17:51 JOB #: [id number] MRI CENTER REPORT Page 1 of 1 COPY
[2017-06-21 21:45] LABS: POC - CREATININE 1.16 mg/dL (0.44-1.03)
== END | disposition home or self-care (01) ==
LOC: CMRI 09:00
PROVIDERS: Psychiatry & Neurology Neurology
DX: M48.06 Spinal stenosis, lumbar region (principal); M47.896 Other spondylosis, lumbar region; M99.83 Other biomechanical lesions of lumbar region
CPT/HCPCS: 72158; 82565; A9577